=== PATIENT | male | born 1990 | race Caucasian/White ===

== ENCOUNTER → 2021-08-27 07:13 | Outpatient (CLI) | payer OTHER, SELFPAY ==
--- NOTE | ~2021-08-27 | XR_ITS ---
EXAMINATION: XR chest 2V 08/27/2021 08:04 INDICATION: Chronic midline low back pain PROCEDURE: 2 view chest COMPARISON: No prior studies for comparison. FINDINGS: The lungs are clear. The cardiomediastinal silhouette is within normal limits. There are no pleural effusions. There is no pneumothorax suspected. IMPRESSION: 1: NO ACUTE CARDIOPULMONARY DISEASE. Reviewed, dictated and finalized at location B.
--- NOTE | ~2021-08-27 | XR_ITS ---
XR thoracic spine 3V 08/27/2021 08:04 Indication: Chronic back pain Procedure: 3 views of the thoracic spine Comparison: No prior studies for comparison. Findings: Mild curvature of the thoracic spine. No fracture, subluxation or dislocation. Vertebral katty dy heights are maintained. No paraspinal soft tissue abnormality. Pedicles intact. Adjacent osseous s tructures are unremarkable. Impression: 1: Mild S-shaped scoliosis of the thoracic spine. Reviewed, dictated and finalized at location B. Impression: 1: Mild S-shaped scoliosis of the thoracic spine.
== END ==
PROVIDERS: PCP Family Medicine; Visit Provider Family Medicine
DX: M54.50 Low back pain, unspecified (principal); G89.29 Other chronic pain; M41.9 Scoliosis, unspecified
CPT/HCPCS: 71046; 72072